=== PATIENT | male | born 1955 | race Caucasian/White ===

== ENCOUNTER → 2019-11-20 08:02 | Outpatient (BNVA) | payer MEDICAID, SELFPAY | PROVIDERS: Family Provider Nurse Practitioner Family; PCP Nurse Practitioner; Visit Provider Nurse Practitioner Psychiatric/Mental Health | DX: F33.3 Major depressive disorder, recurrent, severe with psychotic symptoms (principal); G31.84 Mild cognitive impairment of uncertain or unknown etiology; F71 Moderate intellectual disabilities; F17.220 Nicotine dependence, chewing tobacco, uncomplicated | CPT/HCPCS: 99213 ==

== ENCOUNTER 2020-01-06 14:30 | Outpatient (CLI) | payer MEDICAID, SELFPAY ==
--- NOTE | 2020-01-06 15:58 | ONC CON_ITS ---
Dr. York New Patient Note Patient: Gregor Richards Unit #: [id number]: 1955 Dicatated By: Gregor York M.D.Date of Visit: Jan 06, 2020 Onc MED New Patient/Consult Referring Physician: Dr. Lucas Salguero M.D. Chief Complaint: Elevated platelet count. History of Present Illness: This is a 64 year-old man with a mildly elevated platelet count. He also appears to be slightly anemic. He has multiple psychiatric diagnoses including mental retardation and developmental delay. He is living in a residential facility and he attends workshop 4 days a week [employer]. He has lab work done regularly on a 3-month schedule. On his most recent laboratory studies, from 12/18/2019, his CBC showed a slightly elevated platelet count at 397,000. His hemoglobin at that time was slightly low at 12.5 g with hematocrit 37.7%. The white blood cell count was normal at 5900. The red cell indices were in the low normal range with MCV 85.9 and MCH 28.5. In reviewing records from the residential facility, his previous studies from August 2019 and May 2019 showed slightly higher hemoglobin levels at 13.1 g and 13.5 g respectively. MCV values were also slightly higher, as were the platelet counts at 381,000 414,000. He has been feeling good generally. He says his energy is fine. His only significant complaint is that his back has been hurting a little more recently, enough that he was off work for couple of days. His ECOG score is 1. He has good appetite and his weight is been stable. He does not have fever or night sweats. He has no shortness of breath, cough, or chest pain. He has not been having nausea, and his acid reflux symptoms are well controlled with medication. He has had no problems with bowel movements. He has not been aware of any blood in the stool. He has no complaints. He has no other joint or bone pain. He does not complain of headache or dizziness, and he has no focal neurologic symptoms. Past Medical History: His medical history includes degenerative disease of the spine, developmental speech disorder, dysthymia, gastroesophageal reflux disease, hiatal hernia, hyperlipidemia, hypothyroidism, mental retardation, and vitamin D deficiency. Past Surgical History: His surgical/procedural history has been limited to colonoscopy in 2012. Medications: Ativan 1 Tablet (of 0.5 mg) Oral PRN, Docusate Calcium 1 Capsule (of 100 mg) Oral b.i.d., Ibuprofen 1 Tablet (of 800 mg) Oral t.i.d., Levothyroxine Sodium 1 Tablet (of 75 mcg) Oral daily, Omeprazole 1 CA 125 Units/mL (of 40 mg) Capsule Delayed Release Oral daily, risperiDONE 1 Tablet (of 2 mg) Oral b.i.d., Simvastatin 1 Tablet (of 40 mg) Oral daily, Trintellix 1 Tablet (of 10 mg) Oral daily, Vitamin D-3 1 Capsule Oral q 7 days Allergies: No Known Allergies. Social History: Mr. Richards is single and he is a disabled. He does not smoke. He has a history of chewing 1 can of tobacco daily. He apparently started chewing around age 10. He does not drink alcohol. Family History: He has one living sister. Family history is otherwise unknown. Review Of Symptoms: Constitutional - He says he has good energy. He has limited activity. Appetite is good and weight is stable. No fever, night sweats, or hot flashes. ECOG score is 1, Eyes - No change in vision, ENMT - No hearing loss or tinnitus. No sinus congestion/drainage. No mouth sores. No sore throat or difficulty swallowing, Hematologic/Lymphatic - No abnormal bruising or bleeding, Respiratory - No shortness of breath. No cough. No pleuritic pain or hemoptysis, Cardiovascular - No angina pain. No palpitations, Gastrointestinal - No nausea or vomiting. His acid reflux is adequately managed with medication. No diarrhea or constipation. No blood in the stool or black stools, Genitourinary (M) - No dysuria or hematuria. No urinary frequency. No urgency or incontinence, Musculoskeletal - He has back pain, which recently has been worse. It does tend to fluctuate, Integumentary - No skin rash or other skin changes, Neurologic - No headache or dizziness. No numbness or tingling. No other focal neurologic symptoms, Psychiatric - He gets a little nervous. No depression. No insomnia. Vital Signs: Performed on Jan 06, 2020 15:02: 10, 14.97 (LOW), 1.49 sq.m, 67.50 in, 95 % (LOW), 50 /min (LOW), 20 /min, 141/75 mm(hg) (HIGH), 97.0 F (LOW), and 97.0 lbs (HIGH). Physical Examination: Constitutional - He appears somewhat frail, but not acutely ill, Eyes - Sclerae nonicteric. Conjunctivae clear, ENMT - No lesions noted in the oral cavity, Neck - No mass or thyromegaly, Hematologic/Lymphatic - No cervical, clavicular, or axillary adenopathy, Respiratory - Lungs are clear with good air movement bilaterally, Cardiovascular - Heart rhythm is regular. There is no murmur, gallop, or rub noted, Abdomen - Soft and non-tender. Liver and spleen are not enlarged. There is no abdominal mass or ascites noted and there is no inguinal adenopathy, Back/Spine - No spine or CVA tenderness noted, Extremities - No edema. Dorsalis pedis pulses are palpable bilaterally, Integumentary - No rashes. No suspicious skin lesions noted, Neurologic - He is alert and he responds appropriately to questions. He has some shaking in his arms and legs which appears more consistent with movement disorder than an actual tremor. He does not appear to have any focal neurologic deficit. Impression: 1. Patient with mildly elevated platelet count in association with mild anemia. He has borderline low red blood cell indices. The most likely cause would be iron deficiency anemia with reactive thrombocytosis. A myeloproliferative disorder, though, is not excluded. 2. He has multiple underlying psychiatric diagnoses, including mental retardation and developmental delay. His other medical illnesses include: 3. Hyperlipidemia. 4. Hiatal hernia/GERD. 5. Hypothyroidism. 6. Degenerative disease of the spine with chronic back pain. 7. Vitamin D deficiency. Plan: The patient will have additional laboratory studies today to include CBC, comprehensive metabolic profile, serum iron studies and ferritin. In addition, because his previous records have included B12 levels in the low normal range, I also will check methylmalonic acid and homocystine levels. He will have further evaluation as indicated. If he is found to have iron deficiency, at a minimum he will need stool Hemoccult testing. Signed By: Gregor York M.D. <<Signature on File>>
[2020-01-06 16:17] LABS: Basophils # 0.1 10^3/uL (0.0-0.1); Eosinophils # 0.2 10^3/uL (0.0-0.8); Eosinophils % 2.9 %; Hematocrit 40.6 % (42.0-52.0); Hemoglobin 12.8 g/dL (11.7-16.6); Lymphocytes # 1.4 10^3/uL (0.8-4.8); Lymphocytes % 19.5 %; Mean Corpuscular HGB Conc 31.5 g/dL (30.0-36.0); Mean Corpuscular Hemoglobin 27.4 pg (28.0-34.0); Mean Corpuscular Volume 86.9 fL (80-94); Mean Platelet Volume 8.9 fL (7.4-10.4); Monocytes # 0.8 10^3/uL (0.2-0.9); Monocytes % 11.6 %; Neutrophils # 4.5 10^3/uL (1.8-7.7); Neutrophils % 64.7 %; Nucleated Red Blood Cells % 0 %; Platelet Count 360 10^3/cmm (130-400); Red Blood Count 4.67 10^6/uL (4.1-5.3); Red Cell Distribution Width 14.1 % (12.1-15.1)
[2020-01-06 16:36] LABS: Alanine Aminotransferase 14 U/L (0-41); Albumin Level 4.2 g/dL (3.5-5.2); Alkaline Phosphatase 72 IU/L (40-130); Anion Gap 15.3 (5-19); Aspartate Amino Transferase 21 U/L (0-40); Blood Urea Nitrogen 11 mg/dL (8-23); Calcium 9.8 mg/dL (8.5-10.5); Carbon Dioxide 26 mmol/L (22-29); Chloride 100 mmol/L (98-107); Ferritin 20 ng/mL (30-400); Glucose 106 mg/dL (65-115); Iron 53 ug/dL (59-158); Osmolality Calculated 280 mOsm/kg (285-295); Percent Saturation 19.3 % (20-50); Potassium 4.3 mmol/L (3.5-5.1); Sodium 137 mmol/L (136-145); Total Bilirubin 0.2 mg/dL (0.15-1.2); Total Iron Binding Capacity 274 mcg/dl; Total Protein 7.2 g/dL (6.6-8.7); Unsaturated Iron Binding 221 ug/dL (112-347)
[2020-01-06 17:40] LABS: Homocysteine 12.08
[2020-01-11 02:31] LABS: Methylmalonic Acid 592 nmol/L (87-318)
== END 2020-01-06 14:31 | disposition home or self-care (01) ==
PROVIDERS: PCP Family Medicine; Referring Provider Family Medicine; Visit Provider Internal Medicine Medical Oncology
DX: D64.9 Anemia, unspecified (principal); R79.89 Other specified abnormal findings of blood chemistry; R62.50 Unspecified lack of expected normal physiological development in childhood; F79 Unspecified intellectual disabilities; E78.5 Hyperlipidemia, unspecified; K21.9 Gastro-esophageal reflux disease without esophagitis; K44.9 Diaphragmatic hernia without obstruction or gangrene; E03.9 Hypothyroidism, unspecified; M48.9 Spondylopathy, unspecified; E55.9 Vitamin D deficiency, unspecified
CPT/HCPCS: 36415; 80053; 82728; 83090; 83540; 83550; 83921; 85025; 99204

== ENCOUNTER → 2020-02-19 07:47 | Outpatient (BNVA) | payer MEDICAID, SELFPAY | PROVIDERS: PCP Family Medicine; Visit Provider Nurse Practitioner Psychiatric/Mental Health | DX: F33.3 Major depressive disorder, recurrent, severe with psychotic symptoms (principal); G31.84 Mild cognitive impairment of uncertain or unknown etiology; F71 Moderate intellectual disabilities; F17.220 Nicotine dependence, chewing tobacco, uncomplicated | CPT/HCPCS: 99213 ==

== ENCOUNTER 2020-03-28 08:50 | Day surgery (SDC) | payer MEDICAID, SELFPAY ==
[2020-03-24 14:43] VITALS: BMI 21.2
[2020-03-28 09:13] VITALS: BP 123/86; PULSE 78; RESP 18; TEMP 36.3; O2SAT 96
[2020-03-28] MEDS: sodium chloride 0.9% 1,000 ML 30 ML IV (09:25)
--- NOTE | 2020-03-28 09:48 | W.PM.OPSUD ---
Surgery/Procedure H&P Update DATE OF PROCEDURE: March 28, 2020 DATE H&P PERFORMED: 03/22/20 PREOP DIAGNOSIS: t PLANNED PROCEDURE: Operation Date: 03/28/20 09:45 Proposed Procedures p EGD/colon [id number] R10.13 R63.4(Not Applicable) - Nicko Mcdonnell MD s Colonoscopy(Not Applicable) - Nicko Mcdonnell MD
--- NOTE | 2020-03-28 09:59 | ANES.PREANE2 ---
Pre-Anesthetic Assessment Pre-Anesthetic Assessment: Height/Weight: Height 1.7 m Weight 61.689 kg Temp Pulse Resp BP Pulse Ox 97.4 F L 78 18 123/86 96 03/28/20 09:13 03/28/20 09:13 03/28/20 09:13 03/28/20 09:13 03/28/20 09:13 Preop Diagnosis: t Proposed Procedure: Operation Date: 03/28/20 09:45 Proposed Procedures p EGD/colon 89410 [id number] R10.13 R63.4(Not Applicable) - Nicko Mcdonnell MD s Colonoscopy(Not Applicable) - Nicko Mcdonnell MD Familial anesthetic complications: denies Was Beta Louie taken within 24 hours: N/A Last intake: Intake Last Liquid Date 03/27/20 Last Liquid Time 21:00 Last Solid Date 03/26/20 Last Solid Time 18:00 Last Intake: 00:00 Social: Social History: Tobacco (chews ) and No alcohol Exam: Pre-Anes Outpt Exam: alert, oriented x 3 and clear to auscultation bilaterally Airway: Submandibular: WNL Cervical ROM: WNL MP: 2 Additional comments: endentulous Pulmonary: Pulmonary: None reported CV/HEM: CV/HEM: None reported : : None reported Hepatic: Hepatic: None reported GI: GI: GERD and PUD Metabolic: Metabolic: Thyroid Musc/skel: Musc/skel: Lower Back Pain Neuropsych: Neuropsych: Anxiety Anesthetic Plan: ASA status: 2 Anesthesia: MAC Meds/Allergies Current Medications: Current Medications Generic Name Dose Route Start Last Admin Trade Name Freq PRN Reason Stop Dose Admin Sodium Chloride 1,000 mls @ 30 ml s/hr 03/28/20 09:15 03/28/20 09:25 Sodium Chloride 0.9% IV 30 mls/hr .Q24H NAGI Administration PFSH Anesthesia PFSH: Medical History (Updated 03/22/20 @ 14:35 by Nicko Mcdonnell MD) Major depressive disorder, recurrent episode with mood-congruent psychotic features Mild cognitive impairment, so stated Moderate intellectual disabilities Nicotine dependence, chewing tobacco, uncomplicated Social History (Updated 03/22/20 @ 14:12 by TATY Jose) Smoking and tobacco status: never smoked Alcohol intake: never service: No History of recent travel: No Data Anesthesia Cardiac Studies: No Data to Display
[2020-03-28 10:31] VITALS: BP 101/66; PULSE 63; RESP 16; TEMP 37.3; O2SAT 100
[2020-03-28 10:45] VITALS: BP 104/65; PULSE 76; RESP 16; O2SAT 95
--- NOTE | 2020-03-28 10:45 | CT_ITS ---
WS: [id number] CT ABDOMEN AND PELVIS WITH CONTRAST HISTORY: abd pain; wt loss TECHNIQUE: Imaging performed of the abdomen and pelvis with IV contrast. Single phase imaging of the abdomen. Coronal and sagittal reformats are submitted. All CT scans at [facility] use at least one of these dose optimization techniques: automated exposure control; mA and/or kV adjustment per patient size (includes targeted exams where dose is matched to clinical indication); or iterativ e reconstruction. IV CONTRAST: Omnipaque 300; 95 mL IV. Oral contrast: Yes. DLP: 279.85 mGy.cm COMPARISON: None available. Lower thorax: Lung bases are clear. Mild cardiac enlargement. Stomach is intrathoracic. There does no t appear to be an obstruction from the stomach although there is mild rotation of the stomach. No isc hemic changes. Upper abdominal structures are limited by breathing artifact. Liver/biliary system: Normal size with no intrahepatic dilatation. Gallbladder: Normal. No gallstones or wall thickening. No pericholecystic fluid. Pancreas: Normal. Spleen: Normal. Adrenal glands: Normal. Right kidney: Normal. Left kidney: Normal. Aorta: Mild atherosclerosis with no aneurysm. Lymphadenopathy: None. Free fluid: None. GI tract: Mild constipation. No obstruction identified. Abdominal wall: Unremarkable abdominal wall. No hernia. Pelvis: Urinary bladder is moderately distended. No intraluminal filling defect. Minimal prostate gla nd enlargement with central calcification. No adenopathy. Bones: L5 anterolisthesis by 15 mm. Severe disc space narrowing at L5-S1. Bilateral pars defects at L 5. Additional severe degenerative disc disease at L2-3. CT/CT abdomen pelvis w con* [id number] IMPRESSION: 1. Intrathoracic stomach without evidence for obstruction or ischemia at this time. 2. No ascites or metastatic adenopathy identified. 3. Mild atherosclerosis aorta. 4. Urinary bladder moderately distended with mild prostate enlargement. 5. Grade 2, L5 spondylolisthesis and spondylolysis.
--- NOTE | 2020-03-28 11:10 | SUR.PHASEII ---
IV FLUIDS STOPPED.PIID LEFT IN PLACE FOR CT.
--- NOTE | 2020-03-28 11:18 | SUR.PHASEII ---
FINISHED DRINKING CONTRAST AT 1105 AM
[2020-03-28 11:56] LABS: Anion Gap 15.1 (5-19); Blood Urea Nitrogen 8 mg/dL (8-23); Calcium 8.6 mg/dL (8.5-10.5); Carbon Dioxide 23 mmol/L (22-29); Chloride 102 mmol/L (98-107); Glomerular Filtration Rate 113.5 mL/min (90-130); Glucose 94 mg/dL (65-115); Osmolality Calculated 278 mOsm/kg (285-295); Potassium 4.1 mmol/L (3.5-5.1); Sodium 136 mmol/L (136-145)
== END 2020-03-28 12:20 | disposition home or self-care (01) ==
PROVIDERS: PCP Family Medicine; Visit Provider Internal Medicine
PROC: 0DJ08ZZ Inspection of Upper Intestinal Tract, Via Natural or Artificial Opening Endoscopic (ICD-10-PCS; CPT 43235; principal; 2020-03-28 09:45)
PROC: 0DJD8ZZ Inspection of Lower Intestinal Tract, Via Natural or Artificial Opening Endoscopic (ICD-10-PCS; CPT 45378; 2020-03-28 09:45)
DX: K57.30 Diverticulosis of large intestine without perforation or abscess without bleeding (principal); R63.4 Abnormal weight loss; I70.0 Atherosclerosis of aorta; M43.16 Spondylolisthesis, lumbar region; M47.816 Spondylosis without myelopathy or radiculopathy, lumbar region; N40.0 Benign prostatic hyperplasia without lower urinary tract symptoms; K21.9 Gastro-esophageal reflux disease without esophagitis; F41.9 Anxiety disorder, unspecified
CPT/HCPCS: 12345; 43235; 45378; 74177; 80048; J2704; J7030

== ENCOUNTER → 2020-05-20 08:04 | Outpatient (BNVA) | payer MEDICAID, SELFPAY | PROVIDERS: PCP Family Medicine; Visit Provider Nurse Practitioner Psychiatric/Mental Health | DX: F33.3 Major depressive disorder, recurrent, severe with psychotic symptoms (principal); F71 Moderate intellectual disabilities; G31.84 Mild cognitive impairment of uncertain or unknown etiology; F17.220 Nicotine dependence, chewing tobacco, uncomplicated | CPT/HCPCS: 99213 ==

== ENCOUNTER → 2020-08-19 10:08 | Outpatient (BNVA) | payer MEDICAID, SELFPAY | PROVIDERS: PCP Family Medicine; Visit Provider Nurse Practitioner Psychiatric/Mental Health | DX: F33.3 Major depressive disorder, recurrent, severe with psychotic symptoms (principal); G31.84 Mild cognitive impairment of uncertain or unknown etiology; F71 Moderate intellectual disabilities; F17.220 Nicotine dependence, chewing tobacco, uncomplicated | CPT/HCPCS: 80053; 80061; 81003; 82306; 84439; 84443; 84481; 85007; 85027; 99214 ==

== ENCOUNTER → 2020-09-21 11:33 | Outpatient (BNVA) | payer MEDICARE, MEDICAID, SELFPAY | PROVIDERS: PCP Family Medicine; Visit Provider Nurse Practitioner Family | DX: D72.820 Lymphocytosis (symptomatic) (principal); Z79.899 Other long term (current) drug therapy | CPT/HCPCS: 80500; 83036; 85025; 85651; 86140 ==

== ENCOUNTER → 2020-10-11 00:01 | Outpatient (BNVA) | payer MEDICAID, SELFPAY | PROVIDERS: PCP Family Medicine; Visit Provider Family Medicine | DX: D72.820 Lymphocytosis (symptomatic) (principal); M54.9 Dorsalgia, unspecified | CPT/HCPCS: 80500; 85007; 85027 ==

== ENCOUNTER → 2020-10-19 11:06 | Outpatient (BNVA) | payer MEDICAID, SELFPAY | PROVIDERS: PCP Family Medicine; Visit Provider Nurse Practitioner Family | DX: M54.9 Dorsalgia, unspecified (principal); M51.36 Other intervertebral disc degeneration, lumbar region; M51.37 Other intervertebral disc degeneration, lumbosacral region | CPT/HCPCS: 72100 ==

== ENCOUNTER → 2020-11-09 19:23 | Outpatient (BNVA) | payer MEDICAID, SELFPAY | PROVIDERS: PCP Family Medicine; Visit Provider Family Medicine | DX: D72.820 Lymphocytosis (symptomatic) (principal); Z09 Encounter for follow-up examination after completed treatment for conditions other than malignant neoplasm; M54.9 Dorsalgia, unspecified | CPT/HCPCS: 80500; 88184; 88185 ==

== ENCOUNTER → 2020-11-25 08:53 | Outpatient (BNVA) | payer MEDICAID, SELFPAY | PROVIDERS: PCP Family Medicine; Visit Provider Nurse Practitioner Psychiatric/Mental Health | DX: F33.3 Major depressive disorder, recurrent, severe with psychotic symptoms (principal); G31.84 Mild cognitive impairment of uncertain or unknown etiology; F71 Moderate intellectual disabilities; F17.220 Nicotine dependence, chewing tobacco, uncomplicated | CPT/HCPCS: 99214 ==

== ENCOUNTER 2020-12-28 13:02 | Outpatient (CLI) | payer MEDICARE, MEDICAID, SELFPAY ==
[2020-12-28 15:20] LABS: Basophils # 0.1 10^3/uL (0.0-0.1); Basophils % 1.1 %; Eosinophils # 0.3 10^3/uL (0.0-0.8); Eosinophils % 4.1 %; Hematocrit 44.7 % (42.0-52.0); Hemoglobin 14.2 g/dL (11.7-16.6); Lymphocytes # 2.1 10^3/uL (0.8-4.8); Lymphocytes % 33.5 %; Mean Corpuscular HGB Conc 31.8 g/dL (30.0-36.0); Mean Corpuscular Hemoglobin 29.1 pg (28.0-34.0); Mean Corpuscular Volume 91.6 fL (80-94); Mean Platelet Volume 8.6 fL (7.4-10.4); Monocytes # 0.7 10^3/uL (0.2-0.9); Monocytes % 11.1 %; Neutrophils # 3.17 10^3/uL (1.8-7.7); Neutrophils % 49.6 %; Nucleated Red Blood Cells % 0 %; Platelet Count 349 10^3/cmm (130-400); Red Blood Count 4.88 10^6/uL (4.1-5.3); Red Cell Distribution Width 13.1 % (12.1-15.1); White Blood Count 6.4 10^3/uL (4.0-10.0)
[2020-12-28 15:38] LABS: Alanine Aminotransferase 11 U/L (0-41); Alkaline Phosphatase 71 IU/L (40-130); Anion Gap 10.2 (5-19); Aspartate Amino Transferase 20 U/L (0-40); Blood Urea Nitrogen 14 mg/dL (8-23); Calcium 9.3 mg/dL (8.5-10.5); Carbon Dioxide 30 mmol/L (22-29); Chloride 100 mmol/L (98-107); Ferritin 31 ng/mL (30-400); Globulin 3.2 g/dL (1.3-4.6); Glomerular Filtration Rate 113.2 mL/min (90-130); Glucose 92 mg/dL (65-115); Iron 64 ug/dL (59-158); Lactate Dehydrogenase 155 U/L (135-225); Osmolality Calculated 282 mOsm/kg (285-295); Percent Saturation 24.8 % (20-50); Potassium 4.2 mmol/L (3.5-5.1); Sodium 136 mmol/L (136-145); Total Bilirubin 0.2 mg/dL (0.15-1.2); Total Iron Binding Capacity 258 mcg/dl; Total Protein 7.2 g/dL (6.6-8.7); Unsaturated Iron Binding 194 ug/dL (112-347)
[2020-12-28 15:39] LABS: LAB Peripheral Smear Sent for Review
[2020-12-28 16:34] LABS: Erythrocyte Sedimentation Rate 13 mm/hr (0-10)
--- NOTE | 2020-12-31 11:13 | ONC FU_ITS ---
Dr. York Patient Follow-Up Note Patient: Gregor Richards Unit #: [id number]: 1955 Dicatated By: Gregor York M.D.Date of Visit:Dec 28, 2020 Onc Med Follow-up/Prog Note Chief Complaint: Atypical lymphocytosis. History of Present Illness: This is a 65 year-old man who was recently found to have atypical lymphocytosis. He has multiple psychiatric diagnoses including mental retardation and developmental delay. He has been living in a residential facility and he attends workshop 4 days a week [employer]. I had seen him in December 2019 after he had been noted on his routine laboratory screening to have a slightly elevated platelet count at 397,000. His hemoglobin at that time was slightly low at 12.5 g with hematocrit 37.7%. The white blood cell count was normal at 5900. The red cell indices were in the low normal range with MCV 85.9 and MCH 28.5. At the time I had suspected iron deficiency, and indeed his serum iron studies did show low transferrin saturation at 19% with ferritin also low at 20 ng/mL. He was recommended to begin on oral iron supplementation. On a follow-up visit with [employer] driver in July 2020 his CBC showed normal hemoglobin at 14.0 g with hematocrit 43.4%. The red cell indices were normal. His white blood cell count was 5400 and the platelet count was normal at 305,000. His differential, though, reported 13% atypical lymphocytes. He was then seen by Dr. Gonsalves in September 2020 and he was again noted to have atypical lymphocytes at 7% on his CBC. He did not appear to be having any acute illness or other symptoms associated with it. His other medical illnesses include hyperlipidemia, GERD, hypothyroidism, degenerative disease of the spine, and vitamin D deficiency. He is a non-smoker, but he does chew tobacco. He is seen now in regard to the atypical lymphocytosis. Per history from his caregiver, there is been no significant change in his clinical status other than yesterday he had to have a toenail removed. He is still going to workshop regularly there has been no observed change in his energy or activity tolerance. He has good appetite. He has not had fever or night sweats. He does not complain of sore throat or difficulty swallowing. He has no shortness of breath, cough, or chest pain. He has no GI or complaints. He currently does not have any joint or bone pain, but he apparently does complain at times of back pain. He does not have headache or dizziness, and he has no focal neurologic symptoms. Medications: Acetaminophen (325 mg) Tablet Oral four times a day, Ativan 1 Tablet (of 0.5 mg) Oral PRN, Ativan Tablet Oral PRN, Benztropine Mesylate (1 mg) Tablet Oral at bedtime, Docusate Calcium 1 Capsule (of 100 mg) Oral b.i.d., Levothyroxine Sodium 1 Tablet (of 75 mcg) Oral daily, Naprosyn Tablet Oral PRN, Pantoprazole Sodium (40 mg) Tablet, enteric coated Oral b.i.d., Propranolol HCl (10 mg) Tablet Oral every am, RisperDAL (0.5 mg) Tablet Oral every am, risperiDONE 1 Tablet (of 2 mg) Oral at bedtime, Simvastatin 1 Tablet (of 40 mg) Oral daily, Trintellix 1 Tablet (of 10 mg) Oral daily, Vitamin D-3 1 Capsule Oral q 7 days Allergies: No Known Allergies. Vital Signs: Performed on Dec 28, 2020 13:40 Height - 67.50 in Weight - 130.8 lbs (HIGH) BSA - 1.70 sq.m BMI - 20.18 Temperature - 98.2 F (LOW) Pulse - 77 /min Respiration - 18 /min BP - 118/77 mm(hg) O2 Sat - 96 % Pain - 0 Fatigue - 0 Physical Examination: Constitutional - He looks pretty good generally, Eyes - Sclerae nonicteric. Conjunctivae clear, ENMT - No lesions noted in the oral cavity, Hematologic/Lymphatic - No cervical, clavicular, or axillary adenopathy, Respiratory - Lungs are clear with good air movement bilaterally, Cardiovascular - Heart rhythm is regular. There is no murmur, gallop, or rub noted, Abdomen - Soft. Liver and spleen are not enlarged. There is no abdominal mass or ascites noted and there is no inguinal adenopathy, Extremities - No edema, Neurologic - No focal neurologic deficits noted. Lab/Imaging: Test performed on Dec 28, 2020 14:25 CRP, High Sensitivity 0.150 mg/dL Ferritin 31 ng/mL Iron 64 mcg/dL LDH (Total) 155 U/L Sodium 136 mmol/L Iron Binding Capacity (TIBC) 258 mcg/dl Potassium 4.2 mmol/L % Iron Saturation 24.8 % Chloride 100 mmol/L CO2 30 mmol/L UIBC 194 mcg/dL Anion Gap 10.2 BUN 14 mg/dL Creatinine 0.7 mg/dL Cr Clearance (Est) 88.2900 mL/min eGFR 113.2 mL/min Glucose 92 mg/dL Osmolality - Calculated 282 mOsm/kg Calcium 9.3 mg/dL Protein, Total 7.2 g/dL Albumin 4.0 g/dL Globulin 3.2 g/dL Bilirubin, Total 0.2 mg/dL ALT (SGPT) 11 U/L AST (SGOT) 20 U/L Alkaline Phosphatase 71 IU/L ESR (Sed Rate) 13 mm/hr WBC 6.4 10 3/uL RBC 4.88 10 6/uL HGB 14.2 g/dL HCT 44.7 % MCV 91.6 fL MCH 29.1 pg MCHC 31.8 g/dL RDW 13.1 % Platelet Count 349 10 3/cmm MPV 8.6 fL Neutrophils 3.17 10 3/uL Lymphocytes 2.1 10 3/uL Monocytes 0.7 10 3/uL Eosinophils 0.3 10 3/uL Basophils 0.1 10 3/uL Neutrophil % 49.6 % Lymphocyte % 33.5 % Monocyte % 11.1 % Eosinophil % 4.1 % Basophils % 1.1 % NRBC % 0 % Problem List: 1. Atypical lymphocytosis. The cause/clinical significance is uncertain. 2. In December 2019 he underwent evaluation for mildly elevated platelet count. He was found to have iron deficiency, for which he began on oral iron supplementation. His evaluation at that time also included a mildly elevated MMA level, and that apparently was not further evaluated. 3. He has multiple underlying psychiatric diagnoses, including mental retardation and developmental delay. 4. Hyperlipidemia. 5. Hiatal hernia/GERD. 6. Hypothyroidism. 7. Degenerative disease of the spine with chronic back pain. 8. Vitamin D deficiency. Problems Addressed with this Encounter and Plan: 1. Patient with atypical lymphocytosis reported on blood counts in July 2020 and again in September 2020. He had no associated clinical symptoms and the significance of the finding is uncertain. The differential from his current CBC included 33% lymphocytes with no atypical lymphocytes reported. On my review the blood smear, I saw only a rare large granular lymphocyte, and there were no other significant abnormalities noted. As such, I do not feel any additional evaluation is indicated. 2. In December 2019 he I had seen him for a mildly elevated platelet count. He was found to have iron deficiency, for which he began on oral iron supplementation. His evaluation at that time also included a mildly elevated MMA level, and that apparently was not further evaluated. As such, I will have that repeated along with a B12 level with his next scheduled lab draw. Signed By: Gregor York M.D. <<Signature on File>>
== END 2020-12-28 13:03 | disposition home or self-care (01) ==
LOC: ONCMED 13:14
PROVIDERS: PCP Nurse Practitioner Family; Visit Provider Internal Medicine Medical Oncology
DX: D72.820 Lymphocytosis (symptomatic) (principal); E55.9 Vitamin D deficiency, unspecified; E78.5 Hyperlipidemia, unspecified; K21.9 Gastro-esophageal reflux disease without esophagitis; M47.9 Spondylosis, unspecified; E03.9 Hypothyroidism, unspecified; Z79.899 Other long term (current) drug therapy; D50.9 Iron deficiency anemia, unspecified
CPT/HCPCS: 36415; 80053; 82728; 83540; 83550; 83615; 85025; 85651; 86141; 99214

== ENCOUNTER → 2021-05-19 08:08 | Outpatient (BNVA) | payer MEDICARE, MEDICAID, SELFPAY | PROVIDERS: PCP Nurse Practitioner Family; Visit Provider Nurse Practitioner Psychiatric/Mental Health | DX: F33.3 Major depressive disorder, recurrent, severe with psychotic symptoms (principal); F71 Moderate intellectual disabilities; F17.220 Nicotine dependence, chewing tobacco, uncomplicated; G31.84 Mild cognitive impairment of uncertain or unknown etiology | CPT/HCPCS: 99214 ==

== ENCOUNTER → 2021-06-09 10:53 | Outpatient (BNVA) | payer MEDICARE, MEDICAID, SELFPAY | PROVIDERS: PCP Nurse Practitioner Family; Visit Provider Nurse Practitioner Family | DX: E03.9 Hypothyroidism, unspecified (principal); I10 Essential (primary) hypertension; E55.9 Vitamin D deficiency, unspecified; E78.2 Mixed hyperlipidemia | CPT/HCPCS: 80053; 80061; 82306; 84443 ==

== ENCOUNTER → 2021-08-25 08:11 | Outpatient (BNVA) | payer MEDICARE, MEDICAID, SELFPAY | PROVIDERS: PCP Nurse Practitioner Family; Visit Provider Nurse Practitioner Psychiatric/Mental Health | DX: F33.3 Major depressive disorder, recurrent, severe with psychotic symptoms (principal); G31.84 Mild cognitive impairment of uncertain or unknown etiology; F71 Moderate intellectual disabilities; F17.220 Nicotine dependence, chewing tobacco, uncomplicated | CPT/HCPCS: 99214 ==

== ENCOUNTER → 2021-11-24 08:23 | Outpatient (BNVA) | payer MEDICARE, MEDICAID, SELFPAY | PROVIDERS: PCP Nurse Practitioner Family; Visit Provider Nurse Practitioner Psychiatric/Mental Health | DX: F33.3 Major depressive disorder, recurrent, severe with psychotic symptoms (principal); G31.84 Mild cognitive impairment of uncertain or unknown etiology; F71 Moderate intellectual disabilities; F17.220 Nicotine dependence, chewing tobacco, uncomplicated | CPT/HCPCS: 99214 ==

== ENCOUNTER → 2021-12-07 10:39 | Outpatient (BNVA) | payer MEDICARE, MEDICAID, SELFPAY | PROVIDERS: PCP Nurse Practitioner Family; Visit Provider Nurse Practitioner | DX: I10 Essential (primary) hypertension (principal); E03.9 Hypothyroidism, unspecified; E78.2 Mixed hyperlipidemia; E55.9 Vitamin D deficiency, unspecified; Z79.899 Other long term (current) drug therapy | CPT/HCPCS: 80053; 80061; 81000; 82306; 84443; 85025 ==

== ENCOUNTER → 2022-04-13 11:44 | Outpatient (BNVA) | payer MEDICARE, MEDICAID, SELFPAY | PROVIDERS: PCP Nurse Practitioner; Visit Provider Nurse Practitioner | DX: I10 Essential (primary) hypertension (principal); E78.2 Mixed hyperlipidemia; E03.9 Hypothyroidism, unspecified; Z79.899 Other long term (current) drug therapy | CPT/HCPCS: 80053; 80061; 82306; 84443; 85025 ==

== ENCOUNTER → 2022-09-07 10:52 | Outpatient (BNVA) | payer MEDICARE, MEDICAID, OTHER, SELFPAY | PROVIDERS: PCP Nurse Practitioner; Visit Provider Nurse Practitioner | DX: I10 Essential (primary) hypertension (principal); F33.3 Major depressive disorder, recurrent, severe with psychotic symptoms; E78.2 Mixed hyperlipidemia; Z79.899 Other long term (current) drug therapy; E03.9 Hypothyroidism, unspecified; K21.9 Gastro-esophageal reflux disease without esophagitis | CPT/HCPCS: 80053; 80061; 81000; 84443; 85025 ==

== ENCOUNTER → 2022-12-21 09:13 | Outpatient (BNVA) | payer MEDICARE, MEDICAID, OTHER, SELFPAY | PROVIDERS: PCP Nurse Practitioner; Visit Provider Nurse Practitioner | DX: Z79.899 Other long term (current) drug therapy (principal) | CPT/HCPCS: 83036 ==

== ENCOUNTER → 2023-03-22 10:15 | Outpatient (BNVA) | payer MEDICARE, MEDICAID, SELFPAY | PROVIDERS: PCP Nurse Practitioner; Visit Provider Nurse Practitioner | DX: E03.9 Hypothyroidism, unspecified (principal); I10 Essential (primary) hypertension | CPT/HCPCS: 80053; 80061; 83036; 84443; 85025 ==

== ENCOUNTER → 2023-08-16 10:01 | Outpatient (BNVA) | payer MEDICARE, MEDICAID, OTHER, SELFPAY | PROVIDERS: PCP Nurse Practitioner Family; Visit Provider Nurse Practitioner Family | DX: I10 Essential (primary) hypertension (principal); F33.3 Major depressive disorder, recurrent, severe with psychotic symptoms; Z79.899 Other long term (current) drug therapy; E78.2 Mixed hyperlipidemia; E55.9 Vitamin D deficiency, unspecified | CPT/HCPCS: 80053; 80061; 81003; 82306; 83036; 84443; 85025 ==

== ENCOUNTER → 2024-05-01 10:22 | Outpatient (BNVA) | payer MEDICARE, MEDICAID, OTHER, SELFPAY | PROVIDERS: PCP Nurse Practitioner Family; Visit Provider Nurse Practitioner Family | DX: Z12.5 Encounter for screening for malignant neoplasm of prostate (principal); Z79.899 Other long term (current) drug therapy; E55.9 Vitamin D deficiency, unspecified; I10 Essential (primary) hypertension; E78.2 Mixed hyperlipidemia; E03.9 Hypothyroidism, unspecified; F33.3 Major depressive disorder, recurrent, severe with psychotic symptoms | CPT/HCPCS: 80053; 80061; 81003; 82306; 83036; 84443; 85025; G0103 ==

== ENCOUNTER → 2024-09-18 09:03 | Outpatient (BNVA) | payer MEDICARE, MEDICAID, SELFPAY | PROVIDERS: PCP Nurse Practitioner Family; Visit Provider Nurse Practitioner Family | DX: D64.9 Anemia, unspecified (principal); I10 Essential (primary) hypertension; Z79.899 Other long term (current) drug therapy; E55.9 Vitamin D deficiency, unspecified; E78.2 Mixed hyperlipidemia; E03.9 Hypothyroidism, unspecified; F33.3 Major depressive disorder, recurrent, severe with psychotic symptoms | CPT/HCPCS: 80053; 80061; 81003; 82306; 82728; 83036; 83550; 84443; 85025 ==

== ENCOUNTER → 2025-06-18 10:07 | Outpatient (BNVA) | payer MEDICARE, MEDICAID, OTHER, SELFPAY | PROVIDERS: PCP Nurse Practitioner Family; Visit Provider Nurse Practitioner Family | DX: Z12.5 Encounter for screening for malignant neoplasm of prostate (principal); E55.9 Vitamin D deficiency, unspecified; I10 Essential (primary) hypertension; E78.2 Mixed hyperlipidemia; E03.9 Hypothyroidism, unspecified; D64.9 Anemia, unspecified; Z79.899 Other long term (current) drug therapy; F33.3 Major depressive disorder, recurrent, severe with psychotic symptoms | CPT/HCPCS: 80053; 80061; 81003; 82306; 82728; 83036; 83550; 84443; 85025; G0103 ==